=== PATIENT | male | born 1970 | race Caucasian/White ===

== ENCOUNTER 2019-07-19 08:28 | Emergency (ER) | payer OTHER ==
[2019-07-19 08:41] VITALS: BP 169/117
[2019-07-19] MEDS ORDERED: LIDOCAINE 2% 10 ML MDV SUBQ STA (09:18)
[2019-07-19] MEDS ORDERED: TETANUS/DIPHTHERIA/PERTUSSIS 0.5 ML SYRINGE IM ONE (09:18)
--- NOTE | 2019-07-19 09:18 | ED Physician Documentation ---
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 He is uncertain when his last tetanus vaccine was. He is right-handed. Review of Systems Skin: reports: Laceration (s) PD PAST MEDICAL HISTORY - Past Medical History Past Medical History: Yes Cardiovascular: None Respiratory: None Neuro: None Endocrine/Autoimmune: None GI: GERD : None HEENT: None Psych: None Musculoskeletal: None Derm: None - Past Surgical History Past Surgical History: Yes Ortho: Spine surgery - Present Medications Home Medications: Ambulatory Orders Medication Instructions Recorded Confirmed Hydrocodone/Acetaminophen 1 - 2 each PO Q6H PRN #6 tablet 07/19/19 [Hydrocodon-Acetaminophen 5-325] Omeprazole 20 mg PO DAILY 07/19/19 07/19/19 - Allergies Allergies/Adverse Reactions: Allergies Allergy/AdvReac Type Severity Reaction Status Date / Time Penicillins Allergy Hives Verified 07/19/19 08:37 - Social History Does the pt smoke?: No Smoking Status: Never smoker Does the pt drink ETOH?: Yes Does the pt have substance abuse?: No - Immunizations Immunizations are current?: No Immunizations: TDAP >10years/unknown - POLST Patient has POLST: No PD ED PE NORMAL - Vitals Vital signs reviewed: Yes - General General: Alert and oriented X 3, No acute distress, Well developed/nourished - Extremities Extremities: Other (2 cm laceration across the dorsal aspect of the thumb through the distal aspect of the nail ulnarly. It wraps slightly around onto the pad. No active bleeding.) Results - Vitals Vitals: Oxygen O2 Source Room air Procedures - Laceration (location) Hand left Length in cm: 2 Wound type: Linear, Flap, Other (Did go through the distal aspect of the nail.) Neurovascular status: Sensory intact, Vascular intact Anesthesia: Lidocaine 2% Wound Preparation: Chlorhexadine, Irrigated copiously NS, Wound explored, To the base. No: Debrided moderately, FB identified Skin layer closure: Size #-0 - enter number (5), Sutures - enter # (4) Other: Patient tolerated well, No complications, Dressing applied, Tetanus booster given Complexity: Simple PD MEDICAL DECISION MAKING - ED course Complexity details: d/w patient ED course: Patient tolerated the laceration repair well. He was placed in a dressing per nursing staff. He is instructed on wound care. Follow-up if any signs of infection or suture removal in 10 to 14 days. Departure - Departure Disposition: Home, Self Care Clinical Impression: Laceration Condition: Good Instructions: ED Laceration Hand Follow-Up: [facility] [Provider Group] Prescriptions: Hydrocodone/Acetaminophen [Hydrocodon-Acetaminophen 5-325] 1 - 2 each PO Q6H PRN #6 tablet PRN Reason: pain Comments: Keep our bandage on for 2 to 3 days if it can stay clean and dry. After that you may wash the wound with soap and water but keep it covered and do not allow it to stay wet. Sometimes Tegaderm that you can buy from the pharmacy in the dressing supplies can be wrapped over the wound to keep it dry especially if your hands go to be in and out of water. I will use tape to then put over it to seal the edges to keep water from getting underneath of it. Suture removal in 12 to 14 days. Follow-up immediately if any signs of infection. Take ibuprofen if needed for pain. You have a prescription for just a couple of hydrocodone if you need to take at night to help you sleep. Discharge Date/Time: 07/19/19 11:42
== END 2019-07-19 11:42 | disposition home or self-care (01) ==
LOC: ED 08:28
DX: S61.112A Laceration without foreign body of left thumb with damage to nail, initial encounter (principal); W26.0XXA Contact with knife, initial encounter; Y93.G1 Activity, food preparation and clean up; Y92.812 Truck as the place of occurrence of the external cause; Y99.0 Civilian activity done for income or pay; Z23 Encounter for immunization
CPT/HCPCS: 12001; 90471; 99283